=== PATIENT | female | born 1980 | race African-American/Black ===

== ENCOUNTER 2022-09-16 15:58 | Emergency (ER) | payer MEDICAID, OTHER ==
[~2022-09-16] VITALS: Ht 177.8 cm; Wt 128.0 kg
[2022-09-16 16:12] VITALS: BP 144/90
[2022-09-16] MEDS ORDERED: METHOCARBAMOL 750MG TABLET PO SCH (17:30)
[2022-09-16] MEDS ORDERED: KETOROLAC 60MG/2ML VIAL IM ONE (17:30)
[2022-09-16] MEDS ORDERED: LIDOCAINE 5% PATCH TOP SCH (17:30)
[2022-09-16] MEDS ORDERED: METH-653 MT (18:24)
[2022-09-16] MEDS ORDERED: IBUP-2028 MT (18:24)
[2022-09-16] MEDS ORDERED: LIDO700A30 TP (18:24)
== END 2022-09-16 18:52 | disposition home or self-care (01) ==
LOC: ER 15:58
DX: M25.511 Pain in right shoulder (principal); M62.838 Other muscle spasm; I49.8 Other specified cardiac arrhythmias; Z88.6 Allergy status to analgesic agent; Z90.49 Acquired absence of other specified parts of digestive tract; Z90.710 Acquired absence of both cervix and uterus
CPT/HCPCS: 71045; 73030; 81025; 93005; 96372; 99284; J1885; Z7610

== ENCOUNTER 2024-04-06 10:16 | Emergency (ER) | payer MEDICAID ==
[~2024-04-06] VITALS: Ht 177.8 cm; Wt 123.0 kg
[~2024-04-06 10:16] MED LIST: IBUP-2028 MT; LIDO700A30 TP; METH-653 MT
[2024-04-06 10:36] VITALS: O2SAT 99
[2024-04-06] MEDS: ACETAMINOPHEN 325MG TABLET PO ONE (12:11)
[2024-04-06] MEDS ORDERED: ACET-2708 MT (13:35)
[2024-04-06] MEDS ORDERED: OCUFLX EACHEYE (13:35)
[2024-04-06 13:48] VITALS: BP 130/81; PULSE 77; RESP 14; TEMP 36.94740; O2SAT 99
== END 2024-04-06 13:52 | disposition home or self-care (01) ==
LOC: ER 10:16
DX: B34.9 Viral infection, unspecified (principal); H10.89 Other conjunctivitis; Z20.822 Contact with and (suspected) exposure to COVID-19; Z90.49 Acquired absence of other specified parts of digestive tract; Z90.710 Acquired absence of both cervix and uterus; Z88.6 Allergy status to analgesic agent; Z86.79 Personal history of other diseases of the circulatory system
CPT/HCPCS: 71045; 87070; 87426; 87430; 99284